=== PATIENT | male | born 1940 | race Caucasian/White ===

== ENCOUNTER 2019-08-01 10:07 | Inpatient (IN) | payer MEDICARE, BC ==
[~2019-08-01] VITALS: Ht 190.5 cm; Wt 117.9 kg
[2019-08-01 15:28] VITALS: BP 116/60
[2019-08-01] MEDS ORDERED: CAND1TAB PO (16:03)
[2019-08-01] MEDS ORDERED: CYAN-51 PO (16:03)
[2019-08-01] MEDS ORDERED: POLY17PO4 GT (16:03)
[2019-08-01] MEDS ORDERED: LIDO30AD10 TD (16:03)
[2019-08-01] MEDS ORDERED: FENO145T37 PO (16:03)
[2019-08-01] MEDS ORDERED: HYDR-3980 PO (16:03)
[2019-08-01] MEDS ORDERED: UBID100T7 PO (16:03)
[2019-08-01] MEDS ORDERED: CHOL10002 PO (16:03)
[2019-08-01] MEDS ORDERED: GLUC1CAP30 PO (16:03)
[2019-08-01] MEDS ORDERED: LEVO88TA5 PO (16:03)
[2019-08-01] MEDS ORDERED: CYCL10TA9 PO (16:03)
[2019-08-01] MEDS ORDERED: ENOX40DI SQ (16:03)
[2019-08-01] MEDS ORDERED: ATOR80TA PO (16:03)
[2019-08-01] MEDS ORDERED: DOXA4TAB3 PO (16:03)
[2019-08-01] MEDS ORDERED: ACET-2154 PO (16:03)
[2019-08-01] MEDS ORDERED: VITA-287 PO (16:03)
[2019-08-01] MEDS ORDERED: ACETAMINOPHEN 325 MG TABLET PO PRN (17:15)
[2019-08-01] MEDS ORDERED: DEXTROSE 50% 50 ML DISP.SYRIN IV PRN (17:15)
[2019-08-01 19:38] VITALS: BP 142/71
[2019-08-01] MEDS: HYDROCODONE/APAP 10-325 MG TABLET PO PRN (19:56)
[2019-08-01] MEDS: CYCLOBENZAPRINE HCL 10 MG TABLET PO PRN (19:58)
[2019-08-01] MEDS: FENOFIBRATE NANOCRYSTALLIZED 145 MG TABLET PO SCH (20:00)
[2019-08-01] MEDS: ATORVASTATIN 40 MG TABLET PO SCH (20:01)
[2019-08-01] MEDS: DOXAZOSIN 2 MG TABLET PO SCH (20:06)
[2019-08-01] MEDS: INSULIN REGULAR, HUMAN 300 UNIT/3 ML VIAL SQ PRN (20:27)
[2019-08-01] MEDS: BLOOD SUGAR DIAGNOSTIC 1 EACH STRIP VI SCH (20:29)
[2019-08-02] MEDS: HYDROCODONE/APAP 10-325 MG TABLET PO PRN ×5 (00:17→21:30)
[2019-08-02 05:51] VITALS: BP 133/68
[2019-08-02] MEDS: LEVOTHYROXINE SODIUM 88 MCG TABLET PO SCH (06:17)
[2019-08-02] MEDS: BLOOD SUGAR DIAGNOSTIC 1 EACH STRIP VI SCH ×4 (06:43→21:04)
[2019-08-02] MEDS: CYCLOBENZAPRINE HCL 10 MG TABLET PO PRN (07:01)
[2019-08-02] MEDS: INSULIN REGULAR, HUMAN 300 UNIT/3 ML VIAL SQ PRN ×4 (08:19→21:08)
[2019-08-02] MEDS: VITAMIN B COMPLEX 1 TABLET PO SCH (08:24)
[2019-08-02] MEDS: MIRALAX 17 GM POWD.PACK GT SCH (08:25)
[2019-08-02] MEDS: CYANOCOBALAMIN 1,000 MCG TABLET PO SCH (08:25)
[2019-08-02] MEDS: LIDOCAINE 5% PATCH TD SCH (08:25)
[2019-08-02] MEDS: CHOLECALCIFEROL 1,000 UNIT TABLET PO SCH (08:25)
[2019-08-02] MEDS: HYDROCHLOROTHIAZIDE 12.5 MG CAPSULE PO SCH (08:29)
[2019-08-02] MEDS: VALSARTAN 160 MG TABLET PO SCH (08:30)
[2019-08-02] MEDS: ENOXAPARIN SODIUM 40 MG/0.4 ML DISP.SYRIN SQ SCH (08:31)
[2019-08-02] MEDS ORDERED: [UNRECOGNIZED DRUG - OTHER] PO SCH (09:00)
[2019-08-02] MEDS ORDERED: Medication Not On Formulary EA (Ubidecarenone (Coenzyme Q10) 100 MG) PO SCH (09:00)
[2019-08-02] MEDS ORDERED: [UNRECOGNIZED DRUG - OTHER] PO SCH (09:00)
[2019-08-02 15:48] VITALS: BP 127/65
[2019-08-02 20:15] VITALS: BP 127/56
[2019-08-02] MEDS: ATORVASTATIN 40 MG TABLET PO SCH (21:03)
[2019-08-02] MEDS: METHOCARBAMOL 500 MG TABLET PO SCH (21:03)
[2019-08-02] MEDS: OXYCODONE HCL 10 MG TAB.SR.12H PO SCH (21:03)
[2019-08-02] MEDS: DOXAZOSIN 2 MG TABLET PO SCH (21:04)
[2019-08-02] MEDS: FENOFIBRATE NANOCRYSTALLIZED 145 MG TABLET PO SCH (21:04)
[2019-08-03] MEDS: HYDROCODONE/APAP 10-325 MG TABLET PO PRN ×4 (02:39→22:39)
[2019-08-03 05:50] VITALS: BP 120/51
[2019-08-03] MEDS: METHOCARBAMOL 500 MG TABLET PO SCH ×3 (06:45→22:28)
[2019-08-03] MEDS: LEVOTHYROXINE SODIUM 88 MCG TABLET PO SCH (06:46)
[2019-08-03] MEDS: OXYCODONE HCL 10 MG TAB.SR.12H PO SCH ×3 (06:46→21:18)
[2019-08-03] MEDS: BLOOD SUGAR DIAGNOSTIC 1 EACH STRIP VI SCH ×4 (06:47→20:43)
[2019-08-03 07:30] VITALS: BP 115/55
[2019-08-03] MEDS: VITAMIN B COMPLEX 1 TABLET PO SCH (08:33)
[2019-08-03] MEDS: CHOLECALCIFEROL 1,000 UNIT TABLET PO SCH (08:33)
[2019-08-03] MEDS: CYANOCOBALAMIN 1,000 MCG TABLET PO SCH (08:33)
[2019-08-03] MEDS: HYDROCHLOROTHIAZIDE 12.5 MG CAPSULE PO SCH (08:34)
[2019-08-03] MEDS: MIRALAX 17 GM POWD.PACK GT SCH (08:34)
[2019-08-03] MEDS: VALSARTAN 160 MG TABLET PO SCH (08:34)
[2019-08-03] MEDS: LIDOCAINE 5% PATCH TD SCH (08:35)
[2019-08-03] MEDS: ENOXAPARIN SODIUM 40 MG/0.4 ML DISP.SYRIN SQ SCH (08:38)
[2019-08-03] MEDS: INSULIN REGULAR, HUMAN 300 UNIT/3 ML VIAL SQ PRN ×3 (12:23→20:47)
[2019-08-03 16:00] VITALS: BP 128/70
[2019-08-03 19:58] VITALS: BP 124/52
[2019-08-03] MEDS: ATORVASTATIN 40 MG TABLET PO SCH (20:42)
[2019-08-03] MEDS: FENOFIBRATE NANOCRYSTALLIZED 145 MG TABLET PO SCH (20:42)
[2019-08-03] MEDS: DOXAZOSIN 2 MG TABLET PO SCH (20:43)
[2019-08-03] MEDS ORDERED: METHOCARBAMOL 500 MG TABLET ONE (22:17)
[2019-08-04 04:50] VITALS: BP 132/53
[2019-08-04] MEDS: OXYCODONE HCL 10 MG TAB.SR.12H PO SCH ×3 (05:18→21:07)
[2019-08-04] MEDS: METHOCARBAMOL 500 MG TABLET PO SCH ×3 (05:18→21:07)
[2019-08-04] MEDS: LEVOTHYROXINE SODIUM 88 MCG TABLET PO SCH (06:17)
[2019-08-04] MEDS: BLOOD SUGAR DIAGNOSTIC 1 EACH STRIP VI SCH ×4 (06:30→20:20)
[2019-08-04 08:00] VITALS: BP 133/67
[2019-08-04] MEDS: LIDOCAINE 5% PATCH TD SCH (08:09)
[2019-08-04] MEDS: CHOLECALCIFEROL 1,000 UNIT TABLET PO SCH (08:09)
[2019-08-04] MEDS: VALSARTAN 160 MG TABLET PO SCH (08:09)
[2019-08-04] MEDS: HYDROCODONE/APAP 10-325 MG TABLET PO PRN ×2 (08:09→16:48)
[2019-08-04] MEDS: CYANOCOBALAMIN 1,000 MCG TABLET PO SCH (08:09)
[2019-08-04] MEDS: HYDROCHLOROTHIAZIDE 12.5 MG CAPSULE PO SCH (08:10)
[2019-08-04] MEDS: MIRALAX 17 GM POWD.PACK GT SCH (08:10)
[2019-08-04] MEDS: VITAMIN B COMPLEX 1 TABLET PO SCH (08:10)
[2019-08-04] MEDS: INSULIN REGULAR, HUMAN 300 UNIT/3 ML VIAL SQ PRN ×4 (08:19→20:25)
[2019-08-04] MEDS: ENOXAPARIN SODIUM 40 MG/0.4 ML DISP.SYRIN SQ SCH (08:21)
[2019-08-04 17:56] VITALS: BP 145/59
[2019-08-04] MEDS: FENOFIBRATE NANOCRYSTALLIZED 145 MG TABLET PO SCH (20:19)
[2019-08-04] MEDS: DOXAZOSIN 2 MG TABLET PO SCH (20:20)
[2019-08-04] MEDS: ATORVASTATIN 40 MG TABLET PO SCH (20:20)
[2019-08-04 21:43] VITALS: BP 136/58
[2019-08-05] MEDS: METHOCARBAMOL 500 MG TABLET PO SCH ×3 (05:00→22:32)
[2019-08-05] MEDS: OXYCODONE HCL 10 MG TAB.SR.12H PO SCH ×3 (05:01→22:32)
[2019-08-05] MEDS: LEVOTHYROXINE SODIUM 88 MCG TABLET PO SCH (06:05)
[2019-08-05] MEDS: BLOOD SUGAR DIAGNOSTIC 1 EACH STRIP VI SCH ×4 (06:35→21:10)
[2019-08-05] MEDS: LIDOCAINE 5% PATCH TD SCH (08:07)
[2019-08-05] MEDS: VITAMIN B COMPLEX 1 TABLET PO SCH (08:07)
[2019-08-05] MEDS: HYDROCODONE/APAP 10-325 MG TABLET PO PRN ×2 (08:07→16:18)
[2019-08-05] MEDS: MIRALAX 17 GM POWD.PACK GT SCH (08:07)
[2019-08-05] MEDS: CYANOCOBALAMIN 1,000 MCG TABLET PO SCH (08:07)
[2019-08-05] MEDS: CHOLECALCIFEROL 1,000 UNIT TABLET PO SCH (08:07)
[2019-08-05] MEDS: HYDROCHLOROTHIAZIDE 12.5 MG CAPSULE PO SCH (08:08)
[2019-08-05] MEDS: VALSARTAN 160 MG TABLET PO SCH (08:08)
[2019-08-05] MEDS: INSULIN REGULAR, HUMAN 300 UNIT/3 ML VIAL SQ PRN ×3 (08:15→16:28)
[2019-08-05] MEDS: ENOXAPARIN SODIUM 40 MG/0.4 ML DISP.SYRIN SQ SCH (08:16)
[2019-08-05 08:30] VITALS: BP 131/57
[2019-08-05 17:43] VITALS: BP 142/68
[2019-08-05] MEDS ORDERED: BISACODYL 10 MG SUPP.RECT RC PRN (18:45)
[2019-08-05 19:56] VITALS: BP 112/50
[2019-08-05] MEDS: ATORVASTATIN 40 MG TABLET PO SCH (21:04)
[2019-08-05] MEDS: FENOFIBRATE NANOCRYSTALLIZED 145 MG TABLET PO SCH (21:05)
[2019-08-05] MEDS: DOXAZOSIN 2 MG TABLET PO SCH (21:05)
[2019-08-06 04:55] VITALS: BP 133/62
[2019-08-06] MEDS: METHOCARBAMOL 500 MG TABLET PO SCH ×3 (06:24→21:59)
[2019-08-06] MEDS: OXYCODONE HCL 10 MG TAB.SR.12H PO SCH ×3 (06:24→22:00)
[2019-08-06] MEDS: LEVOTHYROXINE SODIUM 88 MCG TABLET PO SCH (06:24)
[2019-08-06] MEDS: BLOOD SUGAR DIAGNOSTIC 1 EACH STRIP VI SCH ×4 (06:31→20:51)
[2019-08-06 07:48] VITALS: BP 137/58
[2019-08-06] MEDS: LIDOCAINE 5% PATCH TD SCH (08:14)
[2019-08-06] MEDS: CHOLECALCIFEROL 1,000 UNIT TABLET PO SCH (08:15)
[2019-08-06] MEDS: VALSARTAN 160 MG TABLET PO SCH (08:16)
[2019-08-06] MEDS: CYANOCOBALAMIN 1,000 MCG TABLET PO SCH (08:16)
[2019-08-06] MEDS: HYDROCHLOROTHIAZIDE 12.5 MG CAPSULE PO SCH (08:16)
[2019-08-06] MEDS: MIRALAX 17 GM POWD.PACK GT SCH (08:17)
[2019-08-06] MEDS: VITAMIN B COMPLEX 1 TABLET PO SCH (08:17)
[2019-08-06] MEDS: INSULIN REGULAR, HUMAN 300 UNIT/3 ML VIAL SQ PRN ×4 (08:18→20:54)
[2019-08-06] MEDS: ENOXAPARIN SODIUM 40 MG/0.4 ML DISP.SYRIN SQ SCH (08:19)
[2019-08-06 15:19] VITALS: BP 128/58
[2019-08-06] MEDS ORDERED: COUMADIN VARIABLE DOSE REMINDE XX SCH (17:00)
[2019-08-06] MEDS ORDERED: WARFARIN SODIUM 2 MG TABLET PO SCH (17:00)
[2019-08-06 20:25] VITALS: BP 145/63
[2019-08-06] MEDS: DOCUSATE SODIUM 100 MG CAPSULE PO SCH (20:51)
[2019-08-06] MEDS: ATORVASTATIN 40 MG TABLET PO SCH (20:51)
[2019-08-06] MEDS: FENOFIBRATE NANOCRYSTALLIZED 145 MG TABLET PO SCH (20:51)
[2019-08-06] MEDS: DOXAZOSIN 2 MG TABLET PO SCH (20:51)
[2019-08-07 04:42] VITALS: BP 153/69
[2019-08-07] MEDS: OXYCODONE HCL 10 MG TAB.SR.12H PO SCH ×3 (06:40→21:41)
[2019-08-07] MEDS: LEVOTHYROXINE SODIUM 88 MCG TABLET PO SCH (06:40)
[2019-08-07] MEDS: METHOCARBAMOL 500 MG TABLET PO SCH ×3 (06:40→21:39)
[2019-08-07] MEDS: BLOOD SUGAR DIAGNOSTIC 1 EACH STRIP VI SCH ×4 (06:41→21:45)
[2019-08-07 07:40] VITALS: BP 136/62
[2019-08-07] MEDS: INSULIN REGULAR, HUMAN 300 UNIT/3 ML VIAL SQ PRN ×4 (08:13→21:48)
[2019-08-07] MEDS: DOCUSATE SODIUM 100 MG CAPSULE PO SCH ×2 (08:15→21:49)
[2019-08-07] MEDS: CHOLECALCIFEROL 1,000 UNIT TABLET PO SCH (08:15)
[2019-08-07] MEDS: VITAMIN B COMPLEX 1 TABLET PO SCH (08:15)
[2019-08-07] MEDS: CYANOCOBALAMIN 1,000 MCG TABLET PO SCH (08:15)
[2019-08-07] MEDS: VALSARTAN 160 MG TABLET PO SCH (08:20)
[2019-08-07] MEDS: HYDROCHLOROTHIAZIDE 12.5 MG CAPSULE PO SCH (08:21)
[2019-08-07] MEDS: MIRALAX 17 GM POWD.PACK GT SCH (08:21)
[2019-08-07] MEDS: LIDOCAINE 5% PATCH TD SCH (08:21)
[2019-08-07] MEDS: ENOXAPARIN SODIUM 40 MG/0.4 ML DISP.SYRIN SQ SCH (09:22)
[2019-08-07 15:34] VITALS: BP 130/53
[2019-08-07] MEDS: WARFARIN SODIUM 4 MG TABLET PO SCH (16:47)
[2019-08-07 19:58] VITALS: BP 121/59
[2019-08-07] MEDS: ATORVASTATIN 40 MG TABLET PO SCH (21:37)
[2019-08-07] MEDS: FENOFIBRATE NANOCRYSTALLIZED 145 MG TABLET PO SCH (21:38)
[2019-08-07] MEDS: DOXAZOSIN 2 MG TABLET PO SCH (21:38)
[2019-08-08 04:57] VITALS: BP 134/59
[2019-08-08] MEDS: LEVOTHYROXINE SODIUM 88 MCG TABLET PO SCH (06:01)
[2019-08-08] MEDS: METHOCARBAMOL 500 MG TABLET PO SCH ×3 (06:01→21:01)
[2019-08-08] MEDS: OXYCODONE HCL 10 MG TAB.SR.12H PO SCH ×3 (06:01→21:01)
[2019-08-08] MEDS: BLOOD SUGAR DIAGNOSTIC 1 EACH STRIP VI SCH ×4 (06:35→20:57)
[2019-08-08 07:21] LABS: BASOPHILS % (AUTO) 0.8 % (0.0-2.0); EOSINOPHILS # (AUTO) 0.2 K/uL (0.0-0.7); EOSINOPHILS % (AUTO) 3.6 % (0.0-7.0); HEMATOCRIT 34.3 % (36.7-47.1); HEMOGLOBIN 11.3 g/dL (12.5-16.3); LYMPHOCYTES # (AUTO) 0.3 K/uL (20.0-40.0); LYMPHOCYTES % (AUTO) 8.3 % (20.5-51.5); MEAN CORPUSCULAR HEMOGLOBIN 29.8 uug (23.8-33.4); MEAN CORPUSCULAR HGB CONC 33 g/dL (32.5-36.3); MEAN CORPUSCULAR VOLUME 90.1 fL (73.0-96.2); MONOCYTES # (AUTO) 0.6 K/uL (2.0-10.0); NEUTROPHILS # (AUTO) 3.1 K/uL (1.8-8.9); NEUTROPHILS % (AUTO) 73.3 % (38.5-71.5); PLATELET COUNT (AUTO) 428 K/uL (152-348); WHITE BLOOD COUNT (AUTO) 4.2 K/uL (3.6-10.2)
[2019-08-08 07:30] LABS: CARBON DIOXIDE 28 mmol/L (21-32); CHLORIDE 104 mmol/L (98-107); CREATININE 1.2 mg/dL (0.6-1.3); GLUCOSE 176 mg/dL (74-106); MAGNESIUM 1.7 mg/dL (1.8-2.4); POTASSIUM 4.5 mmol/L (3.5-5.1); UREA NITROGEN, BLOOD 18 mg/dL (7-18)
[2019-08-08 08:06] VITALS: BP 123/60
[2019-08-08] MEDS: DOCUSATE SODIUM 100 MG CAPSULE PO SCH ×2 (08:28→20:52)
[2019-08-08] MEDS: HYDROCHLOROTHIAZIDE 12.5 MG CAPSULE PO SCH (08:28)
[2019-08-08] MEDS: VALSARTAN 160 MG TABLET PO SCH (08:28)
[2019-08-08] MEDS: VITAMIN B COMPLEX 1 TABLET PO SCH (08:29)
[2019-08-08] MEDS: CYANOCOBALAMIN 1,000 MCG TABLET PO SCH (08:29)
[2019-08-08] MEDS: CHOLECALCIFEROL 1,000 UNIT TABLET PO SCH (08:29)
[2019-08-08] MEDS: MIRALAX 17 GM POWD.PACK GT SCH (08:29)
[2019-08-08] MEDS: FUROSEMIDE 20 MG TABLET PO SCH (08:29)
[2019-08-08] MEDS: LIDOCAINE 5% PATCH TD SCH (08:30)
[2019-08-08] MEDS: INSULIN REGULAR, HUMAN 300 UNIT/3 ML VIAL SQ PRN ×4 (08:36→20:59)
[2019-08-08] MEDS ORDERED: MAGNESIUM OXIDE 400 MG TABLET PO ONE (14:00)
[2019-08-08 16:07] VITALS: BP 120/53
[2019-08-08] MEDS: HYDROCODONE/APAP 10-325 MG TABLET PO PRN (16:24)
[2019-08-08] MEDS ORDERED: COUMADIN VARIABLE DOSE REMINDE XX SCH (17:00)
[2019-08-08] MEDS ORDERED: WARFARIN SODIUM 2 MG TABLET PO SCH (17:00)
[2019-08-08 19:45] VITALS: BP 132/61
[2019-08-08] MEDS: ATORVASTATIN 40 MG TABLET PO SCH (20:52)
[2019-08-08] MEDS: DOXAZOSIN 2 MG TABLET PO SCH (20:52)
[2019-08-08] MEDS: FENOFIBRATE NANOCRYSTALLIZED 145 MG TABLET PO SCH (20:53)
[2019-08-09 04:36] VITALS: BP 132/54
[2019-08-09] MEDS: OXYCODONE HCL 10 MG TAB.SR.12H PO SCH ×3 (06:14→22:09)
[2019-08-09] MEDS: METHOCARBAMOL 500 MG TABLET PO SCH ×3 (06:14→22:10)
[2019-08-09] MEDS: BLOOD SUGAR DIAGNOSTIC 1 EACH STRIP VI SCH ×4 (06:32→20:50)
[2019-08-09] MEDS: LEVOTHYROXINE SODIUM 88 MCG TABLET PO SCH (06:32)
[2019-08-09 07:52] VITALS: BP 144/65
[2019-08-09] MEDS: CHOLECALCIFEROL 1,000 UNIT TABLET PO SCH (08:20)
[2019-08-09] MEDS: VALSARTAN 160 MG TABLET PO SCH (08:20)
[2019-08-09] MEDS: MIRALAX 17 GM POWD.PACK GT SCH (08:21)
[2019-08-09] MEDS: HYDROCHLOROTHIAZIDE 12.5 MG CAPSULE PO SCH (08:21)
[2019-08-09] MEDS: DOCUSATE SODIUM 100 MG CAPSULE PO SCH ×2 (08:21→20:49)
[2019-08-09] MEDS: LIDOCAINE 5% PATCH TD SCH (08:21)
[2019-08-09] MEDS: FUROSEMIDE 20 MG TABLET PO SCH (08:22)
[2019-08-09] MEDS: VITAMIN B COMPLEX 1 TABLET PO SCH (08:22)
[2019-08-09] MEDS: CYANOCOBALAMIN 1,000 MCG TABLET PO SCH (08:22)
[2019-08-09] MEDS: INSULIN REGULAR, HUMAN 300 UNIT/3 ML VIAL SQ PRN ×4 (08:24→20:53)
[2019-08-09 16:03] VITALS: BP 114/47
[2019-08-09] MEDS: METFORMIN HCL 500 MG TABLET PO SCH (17:16)
[2019-08-09 20:38] VITALS: BP 149/67
[2019-08-09] MEDS: FENOFIBRATE NANOCRYSTALLIZED 145 MG TABLET PO SCH (20:48)
[2019-08-09] MEDS: DOXAZOSIN 2 MG TABLET PO SCH (20:49)
[2019-08-09] MEDS: ATORVASTATIN 40 MG TABLET PO SCH (20:50)
[2019-08-10 04:00] VITALS: BP 149/64
[2019-08-10] MEDS: METHOCARBAMOL 500 MG TABLET PO SCH ×3 (05:34→22:53)
[2019-08-10] MEDS: OXYCODONE HCL 10 MG TAB.SR.12H PO SCH ×3 (05:34→22:53)
[2019-08-10] MEDS: LEVOTHYROXINE SODIUM 88 MCG TABLET PO SCH (06:19)
[2019-08-10] MEDS: BLOOD SUGAR DIAGNOSTIC 1 EACH STRIP VI SCH ×4 (06:35→20:35)
[2019-08-10 07:30] VITALS: BP 123/48
[2019-08-10] MEDS: CHOLECALCIFEROL 1,000 UNIT TABLET PO SCH (09:06)
[2019-08-10] MEDS: METFORMIN HCL 500 MG TABLET PO SCH ×2 (09:07→17:12)
[2019-08-10] MEDS: DOCUSATE SODIUM 100 MG CAPSULE PO SCH ×2 (09:07→20:33)
[2019-08-10] MEDS: VALSARTAN 160 MG TABLET PO SCH (09:07)
[2019-08-10] MEDS: FUROSEMIDE 20 MG TABLET PO SCH (09:07)
[2019-08-10] MEDS: LIDOCAINE 5% PATCH TD SCH (09:08)
[2019-08-10] MEDS: HYDROCHLOROTHIAZIDE 12.5 MG CAPSULE PO SCH (09:08)
[2019-08-10] MEDS: CYANOCOBALAMIN 1,000 MCG TABLET PO SCH (09:08)
[2019-08-10] MEDS: MIRALAX 17 GM POWD.PACK GT SCH (09:08)
[2019-08-10] MEDS: VITAMIN B COMPLEX 1 TABLET PO SCH (09:09)
[2019-08-10] MEDS: INSULIN REGULAR, HUMAN 300 UNIT/3 ML VIAL SQ PRN ×3 (12:11→20:30)
[2019-08-10 16:00] VITALS: BP 128/65
[2019-08-10] MEDS ORDERED: WARFARIN SODIUM 2 MG TABLET PO SCH (17:00)
[2019-08-10] MEDS: WARFARIN SODIUM 4 MG TABLET PO SCH (17:15)
[2019-08-10 20:11] VITALS: BP 118/53
[2019-08-10] MEDS: ATORVASTATIN 40 MG TABLET PO SCH (20:32)
[2019-08-10] MEDS: DOXAZOSIN 2 MG TABLET PO SCH (20:34)
[2019-08-10] MEDS: FENOFIBRATE NANOCRYSTALLIZED 145 MG TABLET PO SCH (20:34)
[2019-08-11 05:18] VITALS: BP 118/59
[2019-08-11] MEDS: OXYCODONE HCL 10 MG TAB.SR.12H PO SCH ×3 (06:44→22:06)
[2019-08-11] MEDS: LEVOTHYROXINE SODIUM 88 MCG TABLET PO SCH (06:44)
[2019-08-11] MEDS: METHOCARBAMOL 500 MG TABLET PO SCH ×3 (06:44→22:06)
[2019-08-11] MEDS: BLOOD SUGAR DIAGNOSTIC 1 EACH STRIP VI SCH ×4 (06:49→21:36)
[2019-08-11 08:00] VITALS: BP 114/56
[2019-08-11] MEDS: INSULIN REGULAR, HUMAN 300 UNIT/3 ML VIAL SQ PRN ×4 (08:08→21:43)
[2019-08-11] MEDS: DOCUSATE SODIUM 100 MG CAPSULE PO SCH ×2 (08:12→21:55)
[2019-08-11] MEDS: VALSARTAN 160 MG TABLET PO SCH (08:13)
[2019-08-11] MEDS: METFORMIN HCL 500 MG TABLET PO SCH ×2 (08:14→17:07)
[2019-08-11] MEDS: CHOLECALCIFEROL 1,000 UNIT TABLET PO SCH (08:14)
[2019-08-11] MEDS: FUROSEMIDE 20 MG TABLET PO SCH (08:14)
[2019-08-11] MEDS: LIDOCAINE 5% PATCH TD SCH (08:14)
[2019-08-11] MEDS: HYDROCHLOROTHIAZIDE 12.5 MG CAPSULE PO SCH (08:15)
[2019-08-11] MEDS: VITAMIN B COMPLEX 1 TABLET PO SCH (08:15)
[2019-08-11] MEDS: CYANOCOBALAMIN 1,000 MCG TABLET PO SCH (08:15)
[2019-08-11] MEDS: MIRALAX 17 GM POWD.PACK GT SCH (08:17)
[2019-08-11] MEDS: HYDROCODONE/APAP 10-325 MG TABLET PO PRN (11:55)
[2019-08-11 16:00] VITALS: BP 123/53
[2019-08-11] MEDS: WARFARIN SODIUM 4 MG TABLET PO SCH (17:07)
[2019-08-11 20:50] VITALS: BP 96/54
[2019-08-11 21:30] VITALS: BP 133/84
[2019-08-11] MEDS: DOXAZOSIN 2 MG TABLET PO SCH (21:40)
[2019-08-11] MEDS: ATORVASTATIN 40 MG TABLET PO SCH (21:55)
[2019-08-11] MEDS: FENOFIBRATE NANOCRYSTALLIZED 145 MG TABLET PO SCH (22:06)
[2019-08-12] MEDS: METHOCARBAMOL 500 MG TABLET PO SCH ×3 (05:16→22:51)
[2019-08-12] MEDS: OXYCODONE HCL 10 MG TAB.SR.12H PO SCH ×3 (05:24→22:51)
[2019-08-12] MEDS: LEVOTHYROXINE SODIUM 88 MCG TABLET PO SCH (06:05)
[2019-08-12] MEDS: BLOOD SUGAR DIAGNOSTIC 1 EACH STRIP VI SCH ×4 (06:42→20:43)
[2019-08-12 08:00] VITALS: BP 101/46
[2019-08-12] MEDS: VITAMIN B COMPLEX 1 TABLET PO SCH (08:40)
[2019-08-12] MEDS: CHOLECALCIFEROL 1,000 UNIT TABLET PO SCH (08:40)
[2019-08-12] MEDS: METFORMIN HCL 500 MG TABLET PO SCH ×2 (08:42→17:01)
[2019-08-12] MEDS: DOCUSATE SODIUM 100 MG CAPSULE PO SCH ×2 (08:42→20:39)
[2019-08-12] MEDS: HYDROCHLOROTHIAZIDE 12.5 MG CAPSULE PO SCH (08:42)
[2019-08-12] MEDS: CYANOCOBALAMIN 1,000 MCG TABLET PO SCH (08:42)
[2019-08-12] MEDS: FUROSEMIDE 20 MG TABLET PO SCH (08:42)
[2019-08-12] MEDS: MIRALAX 17 GM POWD.PACK GT SCH (08:45)
[2019-08-12] MEDS: INSULIN REGULAR, HUMAN 300 UNIT/3 ML VIAL SQ PRN ×3 (08:45→20:42)
[2019-08-12] MEDS: VALSARTAN 160 MG TABLET PO SCH (08:45)
[2019-08-12] MEDS: LIDOCAINE 5% PATCH TD SCH (08:46)
[2019-08-12] MEDS: HYDROCODONE/APAP 10-325 MG TABLET PO PRN (10:36)
[2019-08-12 17:31] VITALS: BP 116/51
[2019-08-12] MEDS: WARFARIN SODIUM 4 MG TABLET PO SCH (17:37)
[2019-08-12] MEDS: FENOFIBRATE NANOCRYSTALLIZED 145 MG TABLET PO SCH (20:39)
[2019-08-12] MEDS: ATORVASTATIN 40 MG TABLET PO SCH (20:39)
[2019-08-12] MEDS: DOXAZOSIN 2 MG TABLET PO SCH (20:40)
[2019-08-13] MEDS: METHOCARBAMOL 500 MG TABLET PO SCH ×3 (06:05→21:14)
[2019-08-13] MEDS: LEVOTHYROXINE SODIUM 88 MCG TABLET PO SCH (06:05)
[2019-08-13] MEDS: OXYCODONE HCL 10 MG TAB.SR.12H PO SCH ×3 (06:06→21:13)
[2019-08-13] MEDS: BLOOD SUGAR DIAGNOSTIC 1 EACH STRIP VI SCH ×4 (06:35→21:03)
[2019-08-13 07:46] VITALS: BP 107/48
[2019-08-13] MEDS: VALSARTAN 160 MG TABLET PO SCH (09:00)
[2019-08-13] MEDS: MIRALAX 17 GM POWD.PACK GT SCH (09:00)
[2019-08-13] MEDS: DOCUSATE SODIUM 100 MG CAPSULE PO SCH ×2 (09:26→20:51)
[2019-08-13] MEDS: CHOLECALCIFEROL 1,000 UNIT TABLET PO SCH (09:27)
[2019-08-13] MEDS: HYDROCHLOROTHIAZIDE 12.5 MG CAPSULE PO SCH (09:27)
[2019-08-13] MEDS: CYANOCOBALAMIN 1,000 MCG TABLET PO SCH (09:27)
[2019-08-13] MEDS: METFORMIN HCL 500 MG TABLET PO SCH ×2 (09:28→17:05)
[2019-08-13] MEDS: FUROSEMIDE 20 MG TABLET PO SCH (09:28)
[2019-08-13] MEDS: VITAMIN B COMPLEX 1 TABLET PO SCH (09:28)
[2019-08-13] MEDS: LIDOCAINE 5% PATCH TD SCH (09:29)
[2019-08-13] MEDS: INSULIN REGULAR, HUMAN 300 UNIT/3 ML VIAL SQ PRN ×3 (09:31→21:06)
[2019-08-13 15:43] VITALS: BP 104/42
[2019-08-13] MEDS: WARFARIN SODIUM 4 MG TABLET PO SCH (17:09)
[2019-08-13] MEDS: CEphaleXIN 250 MG CAPSULE PO SCH ×2 (17:10→20:50)
[2019-08-13 19:43] VITALS: BP 115/49
[2019-08-13] MEDS: FENOFIBRATE NANOCRYSTALLIZED 145 MG TABLET PO SCH (20:50)
[2019-08-13] MEDS: DOXAZOSIN 2 MG TABLET PO SCH (20:51)
[2019-08-13] MEDS: ATORVASTATIN 40 MG TABLET PO SCH (20:51)
[2019-08-14] MEDS: HYDROCODONE/APAP 10-325 MG TABLET PO PRN (03:37)
[2019-08-14 04:50] VITALS: BP 108/57
[2019-08-14] MEDS: METHOCARBAMOL 500 MG TABLET PO SCH ×2 (06:14→13:08)
[2019-08-14] MEDS: LEVOTHYROXINE SODIUM 88 MCG TABLET PO SCH (06:14)
[2019-08-14] MEDS: OXYCODONE HCL 10 MG TAB.SR.12H PO SCH ×2 (06:14→13:08)
[2019-08-14] MEDS: BLOOD SUGAR DIAGNOSTIC 1 EACH STRIP VI SCH ×3 (06:21→16:39)
[2019-08-14] MEDS: INSULIN REGULAR, HUMAN 300 UNIT/3 ML VIAL SQ PRN ×4 (08:00→16:45)
[2019-08-14 08:30] VITALS: BP_SYST 118; BP_SYST 127; BP_DIAS 46; BP_DIAS 48
[2019-08-14] MEDS: CHOLECALCIFEROL 1,000 UNIT TABLET PO SCH (08:50)
[2019-08-14] MEDS: VALSARTAN 160 MG TABLET PO SCH (08:51)
[2019-08-14] MEDS: METFORMIN HCL 500 MG TABLET PO SCH ×2 (08:51→16:39)
[2019-08-14] MEDS: HYDROCHLOROTHIAZIDE 12.5 MG CAPSULE PO SCH (08:51)
[2019-08-14] MEDS: CYANOCOBALAMIN 1,000 MCG TABLET PO SCH (08:51)
[2019-08-14] MEDS: FUROSEMIDE 20 MG TABLET PO SCH (08:51)
[2019-08-14] MEDS: VITAMIN B COMPLEX 1 TABLET PO SCH (08:51)
[2019-08-14] MEDS: MIRALAX 17 GM POWD.PACK GT SCH (08:51)
[2019-08-14] MEDS: CEphaleXIN 250 MG CAPSULE PO SCH ×3 (08:51→16:41)
[2019-08-14] MEDS: DOCUSATE SODIUM 100 MG CAPSULE PO SCH (08:51)
[2019-08-14] MEDS: LIDOCAINE 5% PATCH TD SCH (08:53)
[2019-08-14 16:25] VITALS: BP 117/55
[2019-08-14] MEDS: WARFARIN SODIUM 4 MG TABLET PO SCH (16:41)
== END 2019-08-14 17:50 | disposition home health service (06) | DRG 560 ==
PROVIDERS: ADMIT Physical Medicine & Rehabilitation Pain Medicine; ATTEND Physical Medicine & Rehabilitation Pain Medicine
DX: Z47.89 Encounter for other orthopedic aftercare (principal); H33.20 Serous retinal detachment, unspecified eye; I48.92 Unspecified atrial flutter; E03.9 Hypothyroidism, unspecified; E11.22 Type 2 diabetes mellitus with diabetic chronic kidney disease; M48.061 Spinal stenosis, lumbar region without neurogenic claudication; M51.16 Intervertebral disc disorders with radiculopathy, lumbar region; I12.9 Hypertensive chronic kidney disease with stage 1 through stage 4 chronic kidney disease, or unspecified chronic kidney disease; N18.3 Chronic kidney disease, stage 3 (moderate); G47.33 Obstructive sleep apnea (adult) (pediatric); Z86.718 Personal history of other venous thrombosis and embolism; I44.1 Atrioventricular block, second degree; I48.91 Unspecified atrial fibrillation; N40.0 Benign prostatic hyperplasia without lower urinary tract symptoms; Z90.79 Acquired absence of other genital organ(s); Z98.1 Arthrodesis status; R53.1 Weakness; Z95.0 Presence of cardiac pacemaker
CPT/HCPCS: 36415; 83735; 84100; 85025; 85610; 85730; J1650; J1815